=== PATIENT | male | born 2000 | race Caucasian/White ===

== ENCOUNTER 2021-06-28 03:28 | Emergency (ER) | payer OTHER ==
[~2021-06-28] VITALS: Ht 185.4 cm; Wt 90.7 kg
[~2021-06-28 03:28] MED LIST: FISH OIL 500 M1 EAC1; MULTIVITAMINS1 EAC7; VENTOLIN HFA INH8 GM
[2021-06-28] MEDS ORDERED: PREDNISONE50 MG PO (04:48)
[2021-06-28 05:01] VITALS: BP 120/80
== END 2021-06-28 05:01 | disposition home or self-care (01) ==
LOC: M.ERS 03:28
DX: R21 Rash and other nonspecific skin eruption (principal); R07.0 Pain in throat; R13.10 Dysphagia, unspecified; J45.909 Unspecified asthma, uncomplicated; Z88.1 Allergy status to other antibiotic agents